=== PATIENT | male | born 1995 | race Caucasian/White ===

== ENCOUNTER 2022-05-10 20:05 | Emergency (ER) | payer BC, SELFPAY ==
[2022-05-10 20:19] VITALS: BP 141/89; PULSE 91; RESP 16; TEMP 36.4; O2SAT 95
--- NOTE | 2022-05-10 20:34 | ED.EAR ---
HPI - Ear Problem General Chief complaint: Ear Stated complaint: something in my left ear Time Seen by Provider: 05/10/22 20:28 History of Present Illness HPI Narrative: 27-year-old male reports for evaluation of left ear foreign body. Patient states he was using a ear cleaning device with a tip of the silicone end of the device fell off in his ear 1 hour prior to arrival. Pt reports his ear is not painful, his hearing is just muffled and he feels the sensation of the foreign body. Denies fever, body aches, chills, ear pain, headache, dizziness. Related Data Allergies Allergy/AdvReac Type Severity Reaction Status Date / Time amoxicillin Allergy Mild Hives Verified 05/10/22 20:28 Penicillins Allergy Hives Verified 05/10/22 20:28 Review of Systems Review of Systems: CONSTITUTIONAL: Denies fever, chills EYES: Denies visual changes, redness, or discharge. ENT: Denies rhinorrhea, congestion, sore throat CARDIOVASCULAR: Denies chest pain, palpitations, or edema. RESPIRATORY: Denies cough or dyspnea. GASTROINTESTINAL: Denies abdominal pain, nausea, vomiting, or diarrhea. GENITOURINARY: Denies dysuria or hematuria. SKIN: Denies rash or itching. MUSCULOSKELETAL: Denies back pain, joint pain, or myalgia. NEUROLOGIC: Denies headache, numbness, dizziness, or weakness. PSYCHIATRIC: Denies anxiety or depression. Exam Narrative: GENERAL: Well-appearing, well-nourished, and in no acute distress. HEAD: Normocephalic, atraumatic. EYES: PERRLA and EOMI. ENT: Nares clear, no rhinorrhea or epistaxis. Mucous membranes moist. Oropharynx without tonsillar hypertrophy exudate or other lesions. L canal with blue silicone foreign body and cerumen impaction proximal to foreign body. Cerumen impaction to R canal. No pain with movement of auricles. NECK: Supple. No adenopathy or masses. CHEST: Clear to auscultation. No respiratory distress. No wheezes rales or rhonchi HEART: Regular rate and rhythm. No murmur heard. Normal peripheral pulses. ABDOMEN: Soft, nontender, nondistended, normal active bowel sounds. EXTREMITIES: Normal range of motion. No edema. SKIN: Warm, dry, no rash. NEURO: No focal deficits. Alert and oriented x3. PSYCH: Normal mood and affect. Course Vital Signs Vital signs: Vital Signs Temperature 97.5 F L 05/10/22 20:19 Pulse Rate 91 05/10/22 20:19 Respiratory Rate 16 05/10/22 20:19 Blood Pressure 141/89 H 05/10/22 20:19 Pulse Oximetry 95 05/10/22 20:19 Oxygen Delivery Room Air 05/10/22 20:19 Temperature 97.5 F L 05/10/22 20:19 Pulse Rate 91 05/10/22 20:19 Respiratory Rate 16 05/10/22 20:19 Blood Pressure 141/89 H 05/10/22 20:19 Pulse Oximetry 95 05/10/22 20:19 Oxygen Delivery Room Air 05/10/22 20:19 Procedures FB Removal Ear Foreign Body #1: Location: ear canal (L) Foreign Body Suspected: other TM intact pre-procedure: unable to visualize Foreign Body Removed: yes Foreign Body Removal Technique: forceps Patient Tolerated Procedure: well Complications: none Medical Decision Making MDM Narrative Medical decision making narrative: 27-year-old male reports to the emergency department for evaluation of a foreign body in his left ear canal. Patient states he was trying to clean out his ears with a video assisted device, when a piece of the silicone tipped got lodged in his left ear just prior to arrival. Patient reported muffled hearing and sensation of a foreign body. Denies ear pain. Foreign body removed with alligator forceps. Bilateral cerumen impaction. Ears irrigated bilaterally. 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 TMs not visualized due to cerumen, however Pt continue to denies ear pain. He does not have a PCP, referrel provided. ED return precautions provided. Pt's vitals stable throughout ED visit, he is afebrile
== END 2022-05-10 21:38 | disposition home or self-care (01) ==
PROVIDERS: Emergency Provider Physician Assistant
DX: T16.2XXA Foreign body in left ear, initial encounter (principal); H61.23 Impacted cerumen, bilateral
CPT/HCPCS: 69200; 69209; 99282